=== PATIENT | male | born 1940 | race Caucasian/White ===

== ENCOUNTER 2018-06-29 11:27 | Outpatient (CLI) | payer OTHER, SELFPAY ==
[2018-06-29 11:47] LABS: Absolute Basophil Count 0.03 k/cumm (0.0-0.2); Absolute Eosinophil Count 0.17 k/cumm (0.0-0.7); Absolute Lymphocyte Count 1.49 k/cumm (1.2-3.4); Absolute Monocyte Count 0.45 k/cumm (0.11-0.7); Basophils % 0.8; Eosinophils % 4.3; HCT 35.3 % (40.0-50.0); Lymphocytes % 37.8; Mean Corpuscular Hemoglobin 29.8 pg (27.0-33.0); Mean Corpuscular Volume 87.6 fL (80-95); Mean Platelet Volume 8.4 fL (8.0-11.0); Monocytes % 11.4; Neutrophils % 45.7; Platelet Count 132 x1000/uL (130-400); RBC 4.03 m/cumm (4.50-6.00); White Blood Cell Count 3.94 k/cumm (4.4-10.8)
[2018-06-29 12:14] LABS: ALT 25 U/L (12-78); AST 23 U/L (15-37); Albumin 3.9 g/dL (3.4-5.0); Alkaline Phosphatase 105 U/L (46-116); Anion Gap 7.4 mmol/L (3-11); BUN 15 mg/dL (7-18); Bilirubin, Total 0.4 mg/dL (0.2-1.0); CO2 28.6 mmol/L (21.0-32.0); CREATININE 1.04 mg/dL (0.70-1.30); Calcium 8.8 mg/dL (8.5-10.1); Chloride 104 mmol/L (98-107); Glucose 84 mg/dL (70-100); LDH 212 U/L (85-227); Sodium 140 mmol/L (136-145); Total Protein 6.4 g/dL (6.4-8.2)
== END 2018-06-29 11:28 ==
PROVIDERS: PCP Internal Medicine; Visit Provider Nurse Practitioner Family
DX: C91.90 Lymphoid leukemia, unspecified not having achieved remission (principal)
CPT/HCPCS: 36415; 80053; 83615; 85025

== ENCOUNTER 2018-07-13 07:17 | Outpatient (CLI) | payer OTHER, SELFPAY ==
[2018-07-13 07:35] LABS: Abs Immature Grans 0.01 k/cumm (0.0-0.09); Absolute Basophil Count 0.02 k/cumm (0.0-0.2); Absolute Eosinophil Count 0.23 k/cumm (0.0-0.7); Absolute Lymphocyte Count 1.25 k/cumm (1.2-3.4); Absolute Neutrophil Count 2.17 k/cumm (1.2-6.7); Basophils % 0.5; Eosinophils % 5.6; HCT 36.8 % (40.0-50.0); HGB 12.8 g/dL (13.5-17.5); Immature Grans % 0.2; Lymphocytes % 30.6; Mean Corp. HGB Concentration 34.8 g/dL (32.0-36.0); Mean Corpuscular Hemoglobin 29.8 pg (27.0-33.0); Mean Corpuscular Volume 85.6 fL (80-95); Mean Platelet Volume 9.3 fL (8.0-11.0); Monocytes % 9.8; Neutrophils % 53.3; Platelet Count 110 x1000/uL (130-400); RBC Distribution Width 14.7 % (11.8-14.1); White Blood Cell Count 4.08 k/cumm (4.4-10.8)
[2018-07-13 07:55] LABS: ALT 22 U/L (12-78); AST 19 U/L (15-37); Albumin 3.9 g/dL (3.4-5.0); Alkaline Phosphatase 92 U/L (46-116); Anion Gap 11.4 mmol/L (3-11); BUN 15 mg/dL (7-18); Bilirubin, Total 0.6 mg/dL (0.2-1.0); CO2 26.6 mmol/L (21.0-32.0); CREATININE 1.07 mg/dL (0.70-1.30); Calcium 8.8 mg/dL (8.5-10.1); Chloride 104 mmol/L (98-107); Glucose 145 mg/dL (70-100); LDH 196 U/L (85-227); Potassium 3.7 mmol/L (3.5-5.1); Sodium 142 mmol/L (136-145); Total Protein 6.4 g/dL (6.4-8.2)
== END 2018-07-13 07:18 ==
PROVIDERS: PCP Internal Medicine; Visit Provider Nurse Practitioner Family
DX: C91.90 Lymphoid leukemia, unspecified not having achieved remission (principal)
CPT/HCPCS: 36415; 80053; 83615; 85025

== ENCOUNTER 2018-08-10 01:48 | Outpatient (CLI) | payer OTHER, SELFPAY ==
[2018-08-10 07:46] LABS: HCT 36.2 % (40.0-50.0); Mean Corp. HGB Concentration 35.9 g/dL (32.0-36.0); Mean Corpuscular Hemoglobin 29.8 pg (27.0-33.0); Mean Platelet Volume 9.1 fL (8.0-11.0); Platelet Count 128 x1000/uL (130-400); RBC 4.36 m/cumm (4.50-6.00); RBC Distribution Width 14.9 % (11.8-14.1)
[2018-08-10 07:59] LABS: ALT 30 U/L (12-78); AST 26 U/L (15-37); Alkaline Phosphatase 85 U/L (46-116); Anion Gap 7.1 mmol/L (3-11); BUN 18 mg/dL (7-18); Bilirubin, Total 0.7 mg/dL (0.2-1.0); CO2 28.9 mmol/L (21.0-32.0); CREATININE 0.99 mg/dL (0.70-1.30); Calcium 8.9 mg/dL (8.5-10.1); Chloride 104 mmol/L (98-107); Glucose 111 mg/dL (70-100); LDH 247 U/L (85-227); Potassium 4.2 mmol/L (3.5-5.1); Sodium 140 mmol/L (136-145); Total Protein 6.5 g/dL (6.4-8.2)
[2018-08-10 08:36] LABS: Absolute Lymphocyte Count 0.59 k/cumm (1.2-3.4); Absolute Monocyte Count 0.37 k/cumm (0.11-0.7)
[2018-08-10 08:37] LABS: Absolute Basophil Count 0.02 k/cumm (0.0-0.2); Absolute Eosinophil Count 0.07 k/cumm (0.0-0.7); White Blood Cell Count 1.85 k/cumm (4.4-10.8)
== END 2018-08-10 02:08 ==
PROVIDERS: PCP Internal Medicine; Visit Provider Nurse Practitioner Family
DX: C91.90 Lymphoid leukemia, unspecified not having achieved remission (principal)
CPT/HCPCS: 36415; 80053; 83615; 85025

== ENCOUNTER 2018-08-17 02:28 | Outpatient (CLI) | payer OTHER, SELFPAY ==
[2018-08-17 07:18] LABS: Abs Immature Grans 0.01 k/cumm (0.0-0.09); Absolute Basophil Count 0.04 k/cumm (0.0-0.2); Absolute Eosinophil Count 0.14 k/cumm (0.0-0.7); Absolute Lymphocyte Count 0.65 k/cumm (1.2-3.4); Absolute Monocyte Count 0.42 k/cumm (0.11-0.7); Basophils % 2.3; Eosinophils % 8.1; HCT 35.8 % (40.0-50.0); Immature Grans % 0.6; Lymphocytes % 37.6; Mean Corp. HGB Concentration 36.3 g/dL (32.0-36.0); Mean Corpuscular Hemoglobin 30.1 pg (27.0-33.0); Mean Corpuscular Volume 82.9 fL (80-95); Mean Platelet Volume 8.8 fL (8.0-11.0); Monocytes % 24.3; Neutrophils % 27.1; Platelet Count 121 x1000/uL (130-400); RBC 4.32 m/cumm (4.50-6.00); RBC Distribution Width 14.4 % (11.8-14.1)
[2018-08-17 08:05] LABS: Absolute Neutrophil Count 0.47 k/cumm (1.2-6.7); White Blood Cell Count 1.73 k/cumm (4.4-10.8)
[2018-08-17 08:06] LABS: RBC Morphology Normal
== END 2018-08-17 02:48 ==
PROVIDERS: PCP Internal Medicine; Visit Provider Internal Medicine Hematology & Oncology
DX: C91.90 Lymphoid leukemia, unspecified not having achieved remission (principal)
CPT/HCPCS: 36415; 80053; 85025

== ENCOUNTER 2018-08-24 02:37 | Outpatient (CLI) | payer OTHER, SELFPAY ==
[2018-08-24 08:45] LABS: Abs Immature Grans 0.02 k/cumm (0.0-0.09); Absolute Basophil Count 0.03 k/cumm (0.0-0.2); Absolute Eosinophil Count 0.12 k/cumm (0.0-0.7); Absolute Lymphocyte Count 0.62 k/cumm (1.2-3.4); Absolute Monocyte Count 0.37 k/cumm (0.11-0.7); Absolute Neutrophil Count 0.76 k/cumm (1.2-6.7); Basophils % 1.6; Eosinophils % 6.3; HCT 36.1 % (40.0-50.0); HGB 12.9 g/dL (13.5-17.5); Lymphocytes % 32.3; Mean Corp. HGB Concentration 35.7 g/dL (32.0-36.0); Mean Corpuscular Hemoglobin 29.9 pg (27.0-33.0); Mean Corpuscular Volume 83.8 fL (80-95); Mean Platelet Volume 9.1 fL (8.0-11.0); Monocytes % 19.3; Neutrophils % 39.5; Platelet Count 133 x1000/uL (130-400); RBC 4.31 m/cumm (4.50-6.00); RBC Distribution Width 14.4 % (11.8-14.1)
[2018-08-24 09:05] LABS: White Blood Cell Count 1.92 k/cumm (4.4-10.8)
[2018-08-24 09:06] LABS: Diff Comment Diff Reviewed; RBC Morphology Normal
== END 2018-08-24 02:57 ==
PROVIDERS: PCP Internal Medicine; Visit Provider Nurse Practitioner Family
DX: C91.90 Lymphoid leukemia, unspecified not having achieved remission (principal)
CPT/HCPCS: 36415; 85025

== ENCOUNTER 2018-09-07 01:25 | Outpatient (CLI) | payer OTHER, SELFPAY ==
[2018-09-07 08:46] LABS: Absolute Basophil Count 0.02 k/cumm (0.0-0.2); Absolute Eosinophil Count 0.21 k/cumm (0.0-0.7); Absolute Lymphocyte Count 0.97 k/cumm (1.2-3.4); Absolute Monocyte Count 0.52 k/cumm (0.11-0.7); Absolute Neutrophil Count 1.59 k/cumm (1.2-6.7); Basophils % 0.6; Eosinophils % 6.3; HCT 38.4 % (40.0-50.0); HGB 13.9 g/dL (13.5-17.5); Lymphocytes % 29.3; Mean Corp. HGB Concentration 36.2 g/dL (32.0-36.0); Mean Corpuscular Hemoglobin 29.8 pg (27.0-33.0); Mean Corpuscular Volume 82.4 fL (80-95); Mean Platelet Volume 9.3 fL (8.0-11.0); Monocytes % 15.7; Neutrophils % 48.1; Platelet Count 132 x1000/uL (130-400); RBC 4.66 m/cumm (4.50-6.00); RBC Distribution Width 13.9 % (11.8-14.1); White Blood Cell Count 3.31 k/cumm (4.4-10.8)
[2018-09-07 09:01] LABS: ALT 34 U/L (12-78); AST 25 U/L (15-37); Alkaline Phosphatase 85 U/L (46-116); Anion Gap 6.8 mmol/L (3-11); BUN 18 mg/dL (7-18); Bilirubin, Total 0.8 mg/dL (0.2-1.0); CO2 30.2 mmol/L (21.0-32.0); CREATININE 0.99 mg/dL (0.70-1.30); Calcium 9.1 mg/dL (8.5-10.1); Chloride 104 mmol/L (98-107); Glucose 106 mg/dL (70-100); LDH 224 U/L (85-227); Potassium 4.3 mmol/L (3.5-5.1); Sodium 141 mmol/L (136-145); Total Protein 6.5 g/dL (6.4-8.2)
== END 2018-09-07 01:45 ==
PROVIDERS: PCP Internal Medicine; Visit Provider Nurse Practitioner Family
DX: C91.90 Lymphoid leukemia, unspecified not having achieved remission (principal)
CPT/HCPCS: 36415; 80053; 83615; 85025

== ENCOUNTER 2018-10-05 01:52 | Outpatient (CLI) | payer OTHER, SELFPAY ==
[2018-10-05 08:19] LABS: Abs Immature Grans 0.01 k/cumm (0.0-0.09); Absolute Basophil Count 0.02 k/cumm (0.0-0.2); Absolute Eosinophil Count 0.15 k/cumm (0.0-0.7); Absolute Lymphocyte Count 0.63 k/cumm (1.2-3.4); Absolute Neutrophil Count 2.24 k/cumm (1.2-6.7); Basophils % 0.6; Eosinophils % 4.5; HCT 37.3 % (40.0-50.0); HGB 13.5 g/dL (13.5-17.5); Immature Grans % 0.3; Lymphocytes % 18.8; Mean Corp. HGB Concentration 36.2 g/dL (32.0-36.0); Mean Corpuscular Hemoglobin 30.1 pg (27.0-33.0); Mean Corpuscular Volume 83.3 fL (80-95); Mean Platelet Volume 8.9 fL (8.0-11.0); Neutrophils % 66.8; Platelet Count 107 x1000/uL (130-400); RBC 4.48 m/cumm (4.50-6.00); RBC Distribution Width 14.3 % (11.8-14.1); White Blood Cell Count 3.35 k/cumm (4.4-10.8)
[2018-10-05 08:30] LABS: ALT 34 U/L (12-78); AST 24 U/L (15-37); Albumin 3.9 g/dL (3.4-5.0); Alkaline Phosphatase 88 U/L (46-116); Anion Gap 11.4 mmol/L (3-11); BUN 15 mg/dL (7-18); Bilirubin, Total 0.7 mg/dL (0.2-1.0); CO2 26.6 mmol/L (21.0-32.0); CREATININE 1.03 mg/dL (0.70-1.30); Calcium 9.2 mg/dL (8.5-10.1); Chloride 103 mmol/L (98-107); Glucose 153 mg/dL (70-100); LDH 225 U/L (85-227); Sodium 141 mmol/L (136-145); Total Protein 6.3 g/dL (6.4-8.2)
== END 2018-10-05 02:12 ==
PROVIDERS: PCP Internal Medicine; Visit Provider Nurse Practitioner Family
DX: C91.90 Lymphoid leukemia, unspecified not having achieved remission (principal)
CPT/HCPCS: 36415; 80053; 83615; 85025

== ENCOUNTER 2019-02-06 01:02 | Outpatient (CLI) | payer OTHER, SELFPAY ==
[2019-02-06 13:05] LABS: Abs Immature Grans 0.01 k/cumm (0.0-0.09); Absolute Basophil Count 0.02 k/cumm (0.0-0.2); Absolute Eosinophil Count 0.17 k/cumm (0.0-0.7); Absolute Lymphocyte Count 0.88 k/cumm (1.2-3.4); Absolute Monocyte Count 0.41 k/cumm (0.11-0.7); Absolute Neutrophil Count 2.07 k/cumm (1.2-6.7); Basophils % 0.6; Eosinophils % 4.8; HGB 14.3 g/dL (13.5-17.5); Immature Grans % 0.3; Lymphocytes % 24.7; Mean Corp. HGB Concentration 36.7 g/dL (32.0-36.0); Mean Corpuscular Hemoglobin 30.1 pg (27.0-33.0); Mean Corpuscular Volume 82.1 fL (80-95); Mean Platelet Volume 9.6 fL (8.0-11.0); Monocytes % 11.5; Neutrophils % 58.1; Platelet Count 120 x1000/uL (130-400); RBC 4.75 m/cumm (4.50-6.00); RBC Distribution Width 13.3 % (11.8-14.1); White Blood Cell Count 3.56 k/cumm (4.4-10.8)
--- NOTE | 2019-02-06 13:33 | DI.CT_ITS ---
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 There are no priors for comparison. There is mild atherosclerosis of the thoracic aorta but no aneurysmal dilatation is seen. Heart size is within normal limits. No significant pericardial effusion is present. Coronary artery calcifications are identified. No significant thoracic adenopathy is appreciated. No pleural effusion or pneumothorax is identified. There is a 0.4 cm., non calcified subpleural pulmonary nodule in the medial aspect of the right lower lobe. No suspicious non calcified pulmonary nodules are identified. There are linear infiltrates seen in the lung bases. This may represent atelectasis or scarring. No focal consolidating infiltrates are seen. The tracheobronchial tree is unremarkable. There is diffuse decreased attenuation of the visualized portion of the liver suspicious for hepatic steatosis. There is a 2.8 cm. simple cyst in the upper pole of the right kidney. There are non obstructing stones seen in the left kidney, the largest is seen in the mid pole and measures 0.7cm. There is a small hiatal hernia present. There are degenerative changes seen in the spine. No aggressive osseous lesions are identified. IMPRESSION: 1. No evidence of thoracic adenopathy. 2. Small 4 mm. nodule in the right lower lobe. No evidence of thoracic metastatic disease. 3. Incidental findings consistent with hepatic steatosis. Right renal cyst. Left nephrolithiasis.
[2019-02-06 13:34] LABS: ALT 46 U/L (12-78); AST 31 U/L (15-37); Albumin 4.1 g/dL (3.4-5.0); Alkaline Phosphatase 98 U/L (46-116); BUN 21 mg/dL (7-18); Bilirubin, Total 0.5 mg/dL (0.2-1.0); CREATININE 1.23 mg/dL (0.70-1.30); Calcium 8.8 mg/dL (8.5-10.1); Chloride 101 mmol/L (98-107); Estimated GFR 57.21 (mL/min/1.73m2); Glucose 134 mg/dL (70-100); LDH 240 U/L (85-227); Potassium 3.3 mmol/L (3.5-5.1); Sodium 141 mmol/L (136-145); Total Protein 6.6 g/dL (6.4-8.2)
[2019-02-06] MEDS: Omnipaque 350 MG/ML 100 ML BTL IV (14:39)
== END 2019-02-06 01:22 ==
PROVIDERS: PCP Internal Medicine; Visit Provider Internal Medicine Hematology & Oncology
DX: C91.90 Lymphoid leukemia, unspecified not having achieved remission (principal); R91.1 Solitary pulmonary nodule; K76.0 Fatty (change of) liver, not elsewhere classified; N20.0 Calculus of kidney; N28.1 Cyst of kidney, acquired; K44.9 Diaphragmatic hernia without obstruction or gangrene
CPT/HCPCS: 36415; 80053; 71260; 83615; 85025; J3490

== ENCOUNTER 2019-06-14 01:43 | Outpatient (CLI) | payer OTHER, SELFPAY ==
[2019-06-14 08:43] LABS: Abs Immature Grans 0.01 k/cumm (0.0-0.09); Absolute Basophil Count 0.02 k/cumm (0.0-0.2); Absolute Eosinophil Count 0.21 k/cumm (0.0-0.7); Absolute Lymphocyte Count 1.01 k/cumm (1.2-3.4); Absolute Monocyte Count 0.46 k/cumm (0.11-0.7); Absolute Neutrophil Count 2.93 k/cumm (1.2-6.7); Basophils % 0.4; Eosinophils % 4.5; HCT 40.8 % (40.0-50.0); HGB 15.1 g/dL (13.5-17.5); Immature Grans % 0.2; Lymphocytes % 21.8; Mean Corpuscular Hemoglobin 30.6 pg (27.0-33.0); Mean Corpuscular Volume 82.6 fL (80-95); Mean Platelet Volume 9.3 fL (8.0-11.0); Monocytes % 9.9; Neutrophils % 63.2; Platelet Count 131 x1000/uL (130-400); RBC 4.94 m/cumm (4.50-6.00); White Blood Cell Count 4.64 k/cumm (4.4-10.8)
[2019-06-14 08:57] LABS: ALT 61 U/L (12-78); AST 26 U/L (15-37); Albumin 4.4 g/dL (3.4-5.0); Alkaline Phosphatase 101 U/L (46-116); Anion Gap 9.2 mmol/L (3-11); BUN 20 mg/dL (7-18); CO2 28.8 mmol/L (21.0-32.0); CREATININE 1.09 mg/dL (0.70-1.30); Calcium 9.3 mg/dL (8.5-10.1); Chloride 102 mmol/L (98-107); Glucose 113 mg/dL (70-100); LDH 185 U/L (85-227); Potassium 3.7 mmol/L (3.5-5.1); Sodium 140 mmol/L (136-145); Total Protein 6.8 g/dL (6.4-8.2)
[2019-06-14 09:22] LABS: Hemoglobin A1C 5.3 % (4.5-6.2)
[2019-06-14 09:46] LABS: TSH 0.36 uIU/mL (0.358-3.74); Uric Acid 9.2 mg/dL (3.5-7.2)
[2019-06-14 09:57] LABS: Calculated LDL 103 mg/dL; Cholesterol 159 mg/dL (50-200); HDL Cholesterol 31 mg/dL (40-60); Triglyceride 126 mg/dL (30-150)
== END 2019-06-14 02:03 ==
PROVIDERS: PCP Internal Medicine; Referring Provider Internal Medicine; Visit Provider Internal Medicine Hematology & Oncology
DX: C91.90 Lymphoid leukemia, unspecified not having achieved remission (principal); R73.9 Hyperglycemia, unspecified; E79.0 Hyperuricemia without signs of inflammatory arthritis and tophaceous disease; E03.9 Hypothyroidism, unspecified; E78.5 Hyperlipidemia, unspecified
CPT/HCPCS: 36415; 80053; 80061; 83721; 83036; 83615; 84443; 84550; 85025

== ENCOUNTER 2019-11-01 02:14 | Outpatient (CLI) | payer OTHER, SELFPAY ==
[2019-11-01 07:51] LABS: Abs Immature Grans 0.01 k/cumm (0.0-0.09); Absolute Basophil Count 0.01 k/cumm (0.0-0.2); Absolute Eosinophil Count 0.26 k/cumm (0.0-0.7); Absolute Lymphocyte Count 0.94 k/cumm (1.2-3.4); Absolute Monocyte Count 0.42 k/cumm (0.11-0.7); Absolute Neutrophil Count 2.78 k/cumm (1.2-6.7); Basophils % 0.2; Eosinophils % 5.9; HCT 40.2 % (40.0-50.0); HGB 14.6 g/dL (13.5-17.5); Immature Grans % 0.2; Lymphocytes % 21.3; Mean Corp. HGB Concentration 36.3 g/dL (32.0-36.0); Mean Corpuscular Hemoglobin 30.6 pg (27.0-33.0); Mean Corpuscular Volume 84.3 fL (80-95); Mean Platelet Volume 9.9 fL (8.0-11.0); Monocytes % 9.5; Neutrophils % 62.9; Platelet Count 119 x1000/uL (130-400); RBC 4.77 m/cumm (4.50-6.00); White Blood Cell Count 4.42 k/cumm (4.4-10.8)
[2019-11-01 07:58] LABS: ALT 72 U/L (16-63); AST 32 U/L (15-37); Albumin 4.1 g/dL (3.4-5.0); Alkaline Phosphatase 84 U/L (46-116); Anion Gap 10.1 mmol/L (3-11); BUN 17 mg/dL (7-18); Bilirubin, Total 0.6 mg/dL (0.2-1.0); CO2 25.9 mmol/L (21.0-32.0); CREATININE 1.07 mg/dL (0.70-1.30); Calcium 8.8 mg/dL (8.5-10.1); Chloride 106 mmol/L (98-107); Glucose 163 mg/dL (74-106); LDH 179 U/L (85-227); Potassium 3.6 mmol/L (3.5-5.1); Sodium 142 mmol/L (136-145); Total Protein 6.4 g/dL (6.4-8.2)
== END 2019-11-01 02:34 ==
PROVIDERS: PCP Internal Medicine; Visit Provider Internal Medicine Hematology & Oncology
DX: C91.90 Lymphoid leukemia, unspecified not having achieved remission (principal)
CPT/HCPCS: 36415; 80053; 83615; 85025

== ENCOUNTER 2020-06-06 01:30 | Outpatient (CLI) | payer OTHER, SELFPAY ==
[2020-06-06 07:42] LABS: Abs Immature Grans 0.01 k/cumm (0.0-0.09); Absolute Basophil Count 0.03 k/cumm (0.0-0.2); Absolute Eosinophil Count 0.24 k/cumm (0.0-0.7); Absolute Lymphocyte Count 1.51 k/cumm (1.2-3.4); Absolute Monocyte Count 0.51 k/cumm (0.11-0.7); Absolute Neutrophil Count 3.12 k/cumm (1.2-6.7); Basophils % 0.6; Eosinophils % 4.4; HGB 15.2 g/dL (13.5-17.5); Immature Grans % 0.2 %; Lymphocytes % 27.9; Mean Corp. HGB Concentration 36.2 g/dL (32.0-36.0); Mean Corpuscular Hemoglobin 30.2 pg (27.0-33.0); Mean Corpuscular Volume 83.5 fL (80-95); Monocytes % 9.4; Neutrophils % 57.5; Platelet Count 132 x1000/uL (130-400); RBC 5.03 m/cumm (4.50-6.00); RBC Distribution Width 13.1 % (11.8-14.1); White Blood Cell Count 5.42 k/cumm (4.4-10.8)
[2020-06-06 07:58] LABS: ALT 60 U/L (16-63); AST 32 U/L (15-37); Albumin 4.4 g/dL (3.4-5.0); Alkaline Phosphatase 79 U/L (46-116); Anion Gap 8.3 mmol/L (3-11); BUN 21 mg/dL (7-18); CO2 27.7 mmol/L (21.0-32.0); CREATININE 1.17 mg/dL (0.70-1.30); Calcium 9.1 mg/dL (8.5-10.1); Chloride 104 mmol/L (98-107); Glucose 120 mg/dL (74-106); LDH 173 U/L (85-227); Potassium 4.4 mmol/L (3.5-5.1); Sodium 140 mmol/L (136-145); Total Protein 6.6 g/dL (6.4-8.2)
[2020-06-06 08:01] LABS: Hemoglobin A1C 5.2 % (3.8-5.6)
[2020-06-06 08:24] LABS: TSH 0.27 uIU/mL (0.36-3.74); Uric Acid 8.8 mg/dL (3.5-7.2)
== END 2020-06-06 01:50 ==
PROVIDERS: PCP Internal Medicine; Visit Provider Internal Medicine Hematology & Oncology
DX: C91.90 Lymphoid leukemia, unspecified not having achieved remission (principal); R73.9 Hyperglycemia, unspecified; E79.0 Hyperuricemia without signs of inflammatory arthritis and tophaceous disease; E03.9 Hypothyroidism, unspecified
CPT/HCPCS: 36415; 80053; 83036; 83615; 84443; 84550; 85025

== ENCOUNTER 2020-08-21 02:33 | Outpatient (CLI) | payer OTHER, SELFPAY ==
[2020-08-21 11:35] LABS: TSH 1.29 uIU/mL (0.36-3.74)
[2020-08-22 11:50] LABS: Hepatitis C Ab w Rflx HCV PCR Negative (Negative)
== END 2020-08-21 02:53 ==
PROVIDERS: PCP Internal Medicine; Visit Provider Internal Medicine
DX: E03.9 Hypothyroidism, unspecified (principal); Z11.59 Encounter for screening for other viral diseases
CPT/HCPCS: 36415; 86803; 84443

== ENCOUNTER 2021-01-15 03:01 | Outpatient (CLI) | payer MEDICARE, SELFPAY ==
[2021-01-15 09:57] LABS: Abs Immature Grans 0.02 10^3/uL (0.0-0.06); Absolute Basophil Count 0.06 10^3/uL (0.0-0.2); Absolute Eosinophil Count 0.27 10^3/uL (0.0-0.7); Absolute Lymphocyte Count 1.76 10^3/uL (1.2-3.4); Absolute Monocyte Count 0.61 10^3/uL (0.1-0.8); Absolute Neutrophil Count 3.55 10^3/uL (1.2-6.7); Eosinophils % 4.3; HGB 15.4 g/dL (13.5-17.5); Immature Grans % 0.3; Lymphocytes % 28.1; MCH 30.5 pg (27.0-33.0); MCHC 35.8 % (32.0-36.0); MCV 85.1 fL (80-95); MPV 9.7 fL (8.0-11.0); Monocytes % 9.7; Neutrophils % 56.6; Nucleated RBC 0 %; Platelet Count 141 10^3/uL (130-400); RBC 5.05 10^6/uL (4.36-5.78); RDW 12.9 % (11.8-14.1); RDW-SD 39.2 fL; WBC 6.27 10^3/uL (4.4-10.8)
[2021-01-15 10:07] LABS: ALT 73 U/L (16-63); AST 38 U/L (15-37); Albumin 4.3 g/dL (3.4-5.0); Alkaline Phosphatase 81 U/L (46-116); Anion Gap 11.2 mmol/L (3-11); BUN 24 mg/dL (7-18); Bilirubin, Total 0.9 mg/dL (0.2-1.0); CO2 25.8 mmol/L (21.0-32.0); CREATININE 1.3 mg/dL (0.70-1.30); Chloride 102 mmol/L (98-107); Estimated GFR 53.39 (mL/min/1.73m2); Glucose 88 mg/dL (74-106); LDH 201 U/L (85-227); Potassium 3.6 mmol/L (3.5-5.1); Sodium 139 mmol/L (136-145)
== END 2021-01-15 03:02 | disposition home or self-care (01) ==
LOC: LBO 03:02
PROVIDERS: Internal Medicine Hematology & Oncology; PCP Internal Medicine; Visit Provider Internal Medicine Hematology & Oncology
DX: C91.10 Chronic lymphocytic leukemia of B-cell type not having achieved remission (principal)
CPT/HCPCS: 36415; 80053; 83615; 85025

== ENCOUNTER 2021-06-28 13:17 | Emergency (ER) | payer MEDICARE, SELFPAY ==
--- NOTE | 2021-06-28 13:20 | ED.GENADUL_ITS ---
Discharge Plan Disposition Patient Disposition: HOME Condition: Stable Discharge Details Clinical Impression: Acute ischemic optic neuropathy Primary Care Provider: Nel Saravia ED Provider: Crista Pratt Home Meds and New Rx's Prescriptions: Continued pediatric multivitamin 1 EACH tablet,chewable 1 ea PO RF: 0 triamcinolone acetonide 15 GM cream 15 gm Topical RF: 0 levothyroxine 150 MCG tablet 150 mcg PO DAILY RF: 0 green tea leaf extract 250 MG capsule 250 mg PO RF: 0 hydrochlorothiazide 25 MG tablet 25 mg PO RF: 0 vitamin B complex 1 EACH capsule 1 ea PO RF: 0 magnesium oxide 250 MG tablet 250 mg PO RF: 0 omega-3 fatty acids-fish oil [Fish Oil] 1 EACH capsule 1 ea PO RF: 0 [id number]-herbal cmplx#[id number] [Vitamin D3 Complete] 1 EACH tablet 1 ea PO RF: 0 polyethylene glycol 3350 [Miralax] 17 GM powder in packet 255 gm PO for colonoscopy Qty: 1 RF: 0 bisacodyl [Dulcolax (bisacodyl)] 5 MG tablet,delayed release (DR/EC) 5 mg PO ONCE Qty: 4 RF: 0 Changed aspirin [Aspirin Low Dose] 81 MG tablet,delayed release (DR/EC) 325 mg PO DAILY Qty: 0 RF: 0 Discharge Instructions Additional Instructions: As was recommended by Dr. Herrera please increase your aspirin to full dose daily. Plan is for you to follow-up with him on Wednesday. If you develop headache, increased symptoms, fever, weakness, sensory changes or other new/worsening symptom please seek care urgently once again. Please call Dr. Davis's office on Wednesday to ensure time for your appointment on Wednesday. Referrals: [facility] [place] [Outside] Discharge Data Discharge Date/Time-TO BE ENTERED AT DEPARTURE: 06/28/21 15:11 Medical Decision Making Contacted by Dr. Herrera prior to the patient's arrival. He is concern for an ischemic optic neuropathy. Recommended screening for gentle arteritis with an ESR and CRP. If this is elevated, he recommended 1 g of methylprednisolone. If this is negative, recommended increasing the patient's aspirin. We will touch base with him with results. Patient is a pleasant 80-year-old male presenting today with chief complaint of decreased visual field on the right side. He reports that this has been present since Wednesday. Patient was mowing the lawn when he states that he began noticing a diminishing visual field. Described this in all easley currently. Denies any eye pain. Left eye had cataract but is otherwise unchanged. He denies any headache, focal deficits, sensory changes. Patient states that he is otherwise been feeling quite well. He does report that he had difficulty with vision in the right eye at baseline secondary to cataract. Has been being f ollowed by Dr. Davis and has been planned to have cataract surgery. Prior to arrival, the patient had his pupil dilated on the right side and full exam by Dr. Davis. Day feel that this is consistent with ischemic neuropathy, please see note above. On exam, patient does have very diminished vision in the right side. And visual field inspection, patient is able to see my hand but is not able to comment from the fingers are being held up, he describes it more as shape. He has full external ocular movements. His right pupil is very dilated. Neurologic exam is otherwise intact. No cranial nerve deficit, moving all of his extremities well with no weakness or sensation deficits. Labs reviewed. No leukocytosis. Stable H&H. ESR and CRP are both within normal limits. CMP largely unremarkable. ALT is slightly elevated at 72, this appears to be baseline for the patient. I did speak again with Dr. Herrera. We reviewed the results. He advised placing the patient on a full 325 mg aspirin daily and advised that he will see the patient in the office on Wednesday. I spoke again with the patient we discussed these recommendations. She is in agreement with this plan with no further questions. He will follow through with Dr. Nunez's recommendations and will see them again on Wednesday. Return precautions were discussed. All questions and concerns were addressed in agreement with plan. HPI General Mode of arrival: ambulatory . Date/Time Provider Initiated Documentation: 06/28/21 13:17 . Limitations to Documentation: no limitations . Information obtained by: patient, family (), RN/MD (contacted by Dr. Herrera prior to arrival) and RN notes reviewed . History of Present Illness 80 year old M presents to the emergency department with the chief complaint of right eye visual deficit, described as moderate (progressively worsening since Wednesday), with intensity rated at 1 (patient denies any pain associated with this). and is localized to the eyes. Patient reports no radiation. Patient started experiencing this day(s) (5) and it has been constant. No relieving factors improve symptom(s), No exacerbating factors reported . Patient notes no other symptoms.. Patient did receive the following treatments prior to arrival, none Related Data Home Medications Medication Instructions Recorded Confirmed bisacodyl [Dulcolax (bisacodyl)] 5 mg PO ONCE #4 tab 06/23/16 06/28/21 green tea leaf extract 250 mg PO NS 06/23/16 hydrochlorothiazide 25 mg PO NS 06/23/16 levothyroxine 150 mcg PO DAILY tab-cap NS 06/23/16 06/28/21 magnesium oxide 250 mg PO NS 06/23/16 [id number]-xini-FA-herbal cmplx#[id number] 1 ea PO NS 06/23/16 [Vitamin D3 Complete] omega-3 fatty acids-fish oil [Fish 1 ea PO NS 06/23/16 Oil] pediatric multivitamin 1 ea PO tab.chew NS 06/23/16 polyethylene glycol 3350 [Miralax] 255 gm PO for colonoscopy #1 gm 06/23/16 06/28/21 triamcinolone acetonide 15 gm TOPICAL script NS 06/23/16 vitamin B complex 1 ea PO NS 06/23/16 aspirin [Aspirin Low Dose] 325 mg PO DAILY #0 tab-cap NS 06/28/21 06/28/21 Previous Rx's Medication Instructions Recorded aspirin [Aspirin Low Dose] 325 mg PO DAILY #0 tab-cap NS 06/28/21 Allergies Allergy/AdvReac Type Severity Reaction Status Date / Time No Known Allergies Allergy Unverified 06/28/21 13:27 Review of Systems Constitutional Constitutional: Reports as per HPI, Denies chills, Denies fatigue, Denies fever(s) and Denies headache(s) Eyes Eyes: Reports as per HPI ENT Ears, Nose, Mouth, and Throat: Denies headache(s) Cardiovascular Cardiovascular: Reports as per HPI, Denies chest pain and Denies lightheadedness Respiratory Respiratory: Denies cough Integumentary/Breasts Skin/Breast: Reports as per HPI, Denies rash, Denies skin pain and Denies skin swelling Neurologic Neurologic: Denies headache(s) and Denies radicular pain Endocrine Endocrine: Denies fatigue [facility] Medical History (Updated 06/28/21 @ 14:37 by SAROJ Christian) Acute lymphoid leukemia, without mention of having achieved remission (03/29/14) Dyslipidemia Eczema Environmental allergies (05/29/15) Fatigue Hyperglycemia (04/28/16) Hyperuricemia (04/28/16) Hypothyroidism (acquired) Lymphadenopathy (10/24/07) Nephrolithiasis Vitamin D deficiency (02/28/12) Surgical History Adenoidectomy Appendectomy Lithotripsy (11/29/91) 1991, 1996, 1998 Open Kidney Stone Removal (11/29/05) Stone Extraction and Stent (11/29/92) Stent subsequently removed Family History (Updated 05/05/16 @ 09:03 by Elda Gomez) Other CAD (coronary artery disease) DM type 2 (diabetes mellitus, type 2) Stroke Thyroid disorder Social History Smoking/Tobacco Use Status: Never Smoking risk assessment performed?: Yes Alcohol Intake: never Drug use: Never Substance use type: does not use Do you feel safe at home: Yes Do you feel safe in your relationship?: Yes Exam Const General: cooperative, healthy appearing, comfortable, no acute distress, well developed and well groomed Nutritional Appearance: average body habitus and well nourished Orientation: alert, awake and oriented x3 HENMT Head: normal to inspection, normocephalic and atraumatic Ears: hearing grossly normal bilaterally and external ears normal General nose exam: external nose normal and nares normal Face and sinus: normal facial exam and face symmetric Mouth: oral mucosae normal, lip normal and moist mucous membranes Eyes Visual Easley: visual easley abnormal by confrontation Alignment and Position: alignment normal Periorbital: periorbital findings normal Eyelids: eyelids normal Conjunctivae: conjunctivae normal Sclera: sclerae normal Pupils: pupils not ERRL (right pupil dialated) EOM: EOM intact bilaterally Resp Effort & Inspection: normal respiratory effort, able to speak in complete sentences and no respiratory distress Auscultation: clear to auscultation bilaterally Cardio Rate: regular rate Rhythm: regular rhythm Heart Sounds: S1 normal and S2 normal Skin General skin exam: no rashes or lesions noted Neuro General: patient alert, patient awake and patient oriented x3 Cranial Nerves: pupils not ERRL (limited secondary to pupil being dialated), EOM intact bilaterally, no nystagmus, facial strength normal, tongue midline, hearing normal, able to rotate head bilaterally and able to elevate shoulders bilaterally Cognition: normal cognition Speech: speech normal Gait: normal gait Motor: muscle tone normal throughout, strength 5/5 throughout, no pronator drift, no movement abnormalities noted and no fasciculations Sensory Exam: no sensory deficits noted Coordination: [id number] test normal and [id number] test normal Psych Appearance: grossly normal and well kempt Mental Status: mental status grossly normal Speech and Movement: speech and movement normal
[2021-06-28 13:22] VITALS: BP 141/70; PULSE 59; RESP 18; TEMP 36.6; O2SAT 98
[2021-06-28 13:42] LABS: Abs Immature Grans 0.03 10^3/uL (0.0-0.06); Absolute Basophil Count 0.04 10^3/uL (0.0-0.2); Absolute Eosinophil Count 0.24 10^3/uL (0.0-0.7); Absolute Lymphocyte Count 1.23 10^3/uL (1.2-3.4); Absolute Monocyte Count 0.46 10^3/uL (0.1-0.8); Absolute Neutrophil Count 3.23 10^3/uL (1.2-6.7); Basophils % 0.8; Eosinophils % 4.6; HCT 43.6 % (40.0-50.0); HGB 15.3 g/dL (13.5-17.5); Immature Grans % 0.6; Lymphocytes % 23.5; MCH 30.3 pg (27.0-33.0); MCHC 35.1 % (32.0-36.0); MCV 86.3 fL (80-95); MPV 9.7 fL (8.0-11.0); Monocytes % 8.8; Neutrophils % 61.7; Nucleated RBC 0 %; Platelet Count 142 10^3/uL (130-400); RBC 5.05 10^6/uL (4.36-5.78); RDW 12.9 % (11.8-14.1); RDW-SD 39.9 fL; WBC 5.23 10^3/uL (4.4-10.8)
[2021-06-28 13:55] LABS: ESR < 1 mm/hr (0-20)
[2021-06-28 14:02] LABS: ALT 72 U/L (16-63); AST 32 U/L (15-37); Albumin 4.5 g/dL (3.4-5.0); Alkaline Phosphatase 85 U/L (46-116); BUN 18 mg/dL (7-18); Bilirubin, Total 0.7 mg/dL (0.2-1.0); C-Reactive Protein 0.11 mg/dL (0.0-0.3); CREATININE 1.1 mg/dL (0.70-1.30); Calcium 9.1 mg/dL (8.5-10.1); Chloride 106 mmol/L (98-107); Glucose 100 mg/dL (74-106); Potassium 4.3 mmol/L (3.5-5.1); Sodium 144 mmol/L (136-145); Total Protein 7.2 g/dL (6.4-8.2)
[2021-06-28 15:04] VITALS: BP 137/64; PULSE 59; RESP 18; TEMP 36.8; O2SAT 98
== END 2021-06-28 15:11 | disposition home or self-care (01) ==
PROVIDERS: Emergency Provider Physician Assistant; PCP Internal Medicine
DX: H47.011 Ischemic optic neuropathy, right eye (principal)
CPT/HCPCS: 36415; 80053; 85652; 99283; 85025; 86140

== ENCOUNTER 2021-07-07 06:05 | Day surgery (SDC) | payer MEDICARE, SELFPAY ==
[2021-07-07 06:24] VITALS: BP 107/73; PULSE 59; RESP 16; TEMP 36.4; O2SAT 98
[2021-07-07] MEDS: Tropicam./Phenyleph. (1/2.5%) 5 ML BTL OS ×2 (06:34→06:39)
--- NOTE | 2021-07-07 06:57 | W.ANESPRE ---
General Info Date of Service Date Performed: 07/07/21 Height: 5 ft 11 in Weight: 88.4 kg Body Mass Index (BMI): 27.1 Surgical Procedure: Operation Date: 07/07/21 07:40 Proposed Procedures Side Surgeon p Cataract Extraction with IOL Implant Left Kraig Olguin MD Meds Allergies and Home Medications Allergies Allergy/AdvReac Type Severity Reaction Status Date / Time No Known Allergies Allergy Unverified 07/07/21 06:21 Home Medication Medication Instructions Recorded Fish Oil 1 ea PO DAILY NS 06/23/16 Vitamin D3 Complete 1 ea PO DAILY NS 06/23/16 bisacodyl [Dulcolax (bisacodyl)] 5 mg PO ONCE #4 tab 06/23/16 green tea leaf extract 250 mg PO DAILY NS 06/23/16 hydrochlorothiazide 25 mg PO DAILY NS 06/23/16 levothyroxine 150 mcg PO DAILY tab-cap NS 06/23/16 magnesium oxide 250 mg PO DAILY NS 06/23/16 polyethylene glycol 3350 [Miralax] 255 gm PO for colonoscopy #1 gm 06/23/16 triamcinolone acetonide 15 gm TOPICAL DAILY script NS 06/23/16 vitamin B complex 1 ea PO DAILY NS 06/23/16 aspirin [Aspirin Low Dose] 325 mg PO DAILY #0 tab-cap NS 06/28/21 Current Visit Medications: Current Medications Generic Name Dose Route Start Last Admin Trade Name Freq PRN Reason Stop Dose Admin Acetaminophen 1,000 mg 07/07/21 06:00 Acetaminophen 500 Mg Tab PO Q4H PRN PRN Miscellaneous Medication 0 ml 07/07/21 06:00 Prednisolone 1%, Moxifloxacin 0.5%, Nepafenac 0.1% 5ml Btl OS DIRECTED ANIVAL Miscellaneous Medication 0 ml 07/07/21 06:00 07/07/21 06:39 Tropicam./Phenyleph. (1/2.5%) 5 Ml Btl OS 1 drp DIRECTED ANIVAL Administration Tetracaine HCl 0 ml 07/07/21 06:00 Tetracaine 0.5% 4 Ml Btl OS DIRECTED ANIVAL PFSH Active Problems Active Problems: Problem Status Onset Code Acute ischemic optic neuropathy H47.019 Medical History Medical History (Updated 07/07/21 @ 06:20 by Kingsley Dias) Acute lymphoid leukemia, without mention of having achieved remission (03/29/14) Dyslipidemia Eczema Environmental allergies (05/29/15) Fatigue Hyperglycemia (04/28/16) Hyperuricemia (04/28/16) Hypothyroidism (acquired) Lymphadenopathy (10/24/07) Nephrolithiasis Vision loss of right eye Vitamin D deficiency (02/28/12) Surgical History Surgical History (Updated 07/07/21 @ 06:21 by Kingsley Dias) Adenoidectomy Patient denies having this surgery. Appendectomy Lithotripsy (11/29/91) 1991, 1996, 1998 Open Kidney Stone Removal (11/29/05) Stone Extraction and Stent (11/29/92) Stent subsequently removed Tobacco Smoking/Tobacco Use Status: Never Alcohol Alcohol Intake: never Substance Use Substance use: Never Substance use type: does not use Vital Signs and Lab Results Vital Signs Most Recent Vital Signs in EMR: Most Recent Vital Signs Temp Pulse Resp BP Pulse Ox 36.4 C L 59 L 16 107/73 98 07/07/21 06:24 07/07/21 06:24 07/07/21 06:24 07/07/21 06:24 07/07/21 06:24 Lab Results Blood Type / Crossmatch: No Data to Display Complete Blood Count: White Blood Count 5.23 10^3/uL (4.4-10.8) 06/28/21 13:30 06/28/21 Red Blood Count 5.05 10^6/uL (4.36-5.78) 06/28/21 13:30 06/28/21 Hemoglobin 15.3 g/dL (13.5-17.5) 06/28/21 13:30 06/28/21 Hematocrit 43.6 % (40.0-50.0) 06/28/21 13:30 06/28/21 Platelet Count 142 10^3/uL (130-400) 06/28/21 13:30 06/28/21 Complete Metabolic Panel: Sodium Level 144 mmol/L (136-145) 06/28/21 13:30 06/28/21 Potassium Level 4.3 mmol/L (3.5-5.1) 06/28/21 13:30 06/28/21 Chloride Level 106 mmol/L (98-107) 06/28/21 13:30 06/28/21 Carbon Dioxide Level 29.0 mmol/L (21.0-32.0) 06/28/21 13:30 06/28/21 Blood Urea Nitrogen 18 mg/dL (7-18) 06/28/21 13:06/28/21 Creatinine 1.1 mg/dL (0.70-1.30) 06/28/21 13:30 06/28/21 Estimated GFR/1.73 m2 >= 60.00 (mL/min/1.73m2) 06/28/21 13:06/28/21 Calcium Level 9.1 mg/dL (8.5-10.1) 06/28/21 13:06/28/21 Albumin 4.5 g/dL (3.4-5.0) 06/28/21 13:06/28/21 Glucose Level 100 mg/dL (74-106) 06/28/21 13:30 06/28/21 C-Reactive Protein 0.11 mg/dL (0.0-0.3) 06/28/21 13:30 06/28/21 Liver Function Panel: Alanine Aminotransferase (ALT/SGPT) 72 U/L (16-63) H 06/28/21 13:30 06/28/21 Aspartate Amino Transf (AST/SGOT) 32 U/L (15-37) 06/28/21 13:06/28/21 Coagulation Panel: No Data to Display Cardiac Panel: No Data to Display Arterial Blood Gas: No Data to Display Venous Blood Gas: No Data to Display Pancreas Panel: No Data to Display Thyroid Panel: No Data to Display Infectious Disease: No Data to Display Blood Cultures: No Data to Display Toxicology Panel: No Data to Display Anesthesia Assessment and Plan Anesthesia History Personal History: No History of Anesthesia Complications Family History: No Family History of Anesthesia Complications Exercise Tolerance Exercise Tolerance: Metabolic Equivalents>4 Pertinent Negatives Pertinent Negatives: No Symptoms of GERD, No Major Cardiovascular Symptoms or Complaints, No Major Pulmonary Symptoms or Complaints and No History of CVA/TIA Cardiac & Pulmonary Exam Cardiac Exam: Normal S1/S2 Heart Sounds Pulmonary Exam: Clear Bilateral Breath Sounds Airway Exam Known Difficult Airway: No Mallampati Class: 2 Mouth Opening: Normal (> 3cm) Thyromental Distance: Greater than 3 cm Neck Range of Motion: Full ROM Neck Circumference: Normal Teeth Condition: Normal Dentition ASA Classification ASA Score: ASA 2 Emergency Case?: No NPO Status NPO Status: NPO Clears >2 hours, Solids >8 hours Anesthesia Plan Resuscitation Status: Full Code Anesthesia Technique: MAC Anesthesia Airway Planned: Natural Airway Monitors Used: Standard Monitors
[2021-07-07 07:14] VITALS: BMI 27.1
--- NOTE | 2021-07-07 07:50 | W.ANESPOSTOP ---
Postoperative Evaluation Date, Time and Location Date Performed: 07/07/21 Time Performed: 08:13 Patient Location: Day Surgery Unit Vital Signs Most Recent Imported Vital Signs: Most Recent Vital Signs Temp Pulse Resp BP Pulse Ox 36.4 C L 59 L 16 107/73 98 07/07/21 06:24 07/07/21 06:24 07/07/21 06:24 07/07/21 06:24 07/07/21 06:24 Most Recent Manually Entered Vital Signs: Adult Blood Pressure: 130/71 Heart Rate: 55 Respirations: 16 Oxygen Saturation (%): 98 Temperature (C): 36.5 C Pain Score (0-10 Scale): 0 Pain Score Most Recent Pain Score: Most Recent Pain Score Pain Level 0 07/07/21 06:24 Assessment Mental Status: Awake (Alert & Oriented to Patient Baseline) Airway and Respiratory Function: Patent airway with normal (patient baseline) respiratory exam Cardiovascular Function: Hemodynamically Stable Hydration Status: Adequately Hydrated Nausea & Vomiting: No Nausea or Vomiting Pain: Pt. Denies Any Pain Peripheral Nerve Block: Other (Local by Dr. Olguin)
[2021-07-07] MEDS: Lidocaine 1% Pres-Free 5 ML VIAL (07:57)
[2021-07-07] MEDS: Balanced Salt Soln.-PLUS 500 ML BAG (08:02)
[2021-07-07] MEDS: Lidocaine 2% Jelly 6 ML SYR (08:05)
--- NOTE | 2021-07-07 08:06 | W.PM.DSUDISC ---
Discharge Plan Disposition Patient Disposition: HOME Condition: Good Discharge Details Attending Provider: Kraig Olguin Primary Care Provider: Delmer Koch Home Meds and New Rx's Prescriptions: No Action triamcinolone acetonide 15 GM cream 15 gm Topical DAILY RF: 0 levothyroxine 150 MCG tablet 150 mcg PO DAILY RF: 0 green tea leaf extract 250 MG capsule 250 mg PO DAILY RF: 0 hydrochlorothiazide 25 MG tablet 25 mg PO DAILY RF: 0 vitamin B complex 1 EACH capsule 1 ea PO DAILY RF: 0 magnesium oxide 250 MG tablet 250 mg PO DAILY RF: 0 Fish Oil 1 EACH capsule 1 ea PO DAILY RF: 0 Vitamin D3 Complete 1 EACH tablet 1 ea PO DAILY RF: 0 polyethylene glycol 3350 [Miralax] 17 GM powder in packet 255 gm PO for colonoscopy Qty: 1 RF: 0 bisacodyl [Dulcolax (bisacodyl)] 5 MG tablet,delayed release (DR/EC) 5 mg PO ONCE Qty: 4 RF: 0 aspirin [Aspirin Low Dose] 81 MG tablet,delayed release (DR/EC) 325 mg PO DAILY Qty: 0 RF: 0 Discharge Instructions Stand Alone Forms: Post-op Topical CataractEse (DSU) Discharge Orders Discharge Orders: Discharge Order (Routine); Ordered 07/07/21 Ordered By: Kraig Olguin DS: Diagnosis Discharge Diagnosis (1) Cortical cataract of left eye: Status: Resolved (2) Nuclear sclerotic cataract of left eye: Status: Resolved
[2021-07-07] MEDS: Povidone-Iodine Ophth 30 ML BTL (08:07)
--- NOTE | 2021-07-07 08:07 | W.PM.OP ---
Date of service: 07/07/21 Time of Service: 08:08 Operative Note Operative Note DATE OF PROCEDURE: 07/07/21 PRE-OP DIAGNOSIS: Nuclear/cortical cataract, left eye POST-OP DIAGNOSIS: same PROCEDURE: Cataract extraction using phacoemulsification with intraocular lens implant, left eye SURGEON: Kraig Olguin ANESTHESIA TYPE: Local By Surgeon and MAC Refer to Anesthesia Record PATHOLOGY: none sent COMPLICATIONS: None Patient was transported to: same day Patient's condition: stable Implants: Terence and Terence / [employer] Tecnis [id number] Indications: Progressive decreased vision due to cataract, left eye, with poor red reflex Procedure Description: CATARACT SURGERY OPERATIVE REPORT PREOPERATIVE DIAGNOSIS: 1. Nuclear/cortical cataract, left eye POSTOPERATIVE DIAGNOSIS: Same OPERATION: 1. Cataract extraction using phacoemulsification with posterior chamber intraocular lens implant, left eye. IOL: IOL Steel Molder/Model: Terence & Terence / NGOZI Tecnis [id number] IOL Power: + 21.5 diopters IOL Serial Number: [id number] Optic Diameter: 6.0 mm Haptic/Overall Diameter: 13.0 mm PHACO INFO: [employer] Vision System with OZil and Active Fluidics Cumulative Dispersed Energy (CDE): 10.38 seconds SURGEON: Kraig Olguin MD, LORIN ANESTHESIA: Monitored A [facility] Care (MAC), with local sub-tenon's anesthetic infiltration COMPLICATIONS: None SPECIMENS: None INDICATIONS FOR PROCEDURE: The patient is a 80-year-old gentleman with history of diminished visual acuity in both eyes secondary to the development of significant nuclear and cortical cataracts in both eyes. The option of cataract surgery was offered to the patient and he wished to proceed. 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 He also has an epiretinal membrane affecting the macula in the left eye. He understands her postoperative visual acuity will be limited by the presence of pre-existing maculopathy. PROCEDURE: The correct surgical eye was identified and marked as the left eye and the pupil was dilated in the preoperative area using mydriatics and cycloplegics. The dilated pupil size was 7.0 mm. He elected to proceed without oral sedation. The patient was brought to the operating room where cardiopulmonary monitoring was instituted and surgical time-out was performed, confirming the correct operative eye and IOL power. Topical anesthesia was administered and ophthalmic povidone-iodine 5% was instilled into the conjunctival fornices. Lidocaine gel was applied to the cornea and the ursula-ocular area was prepped with Betadine 10% solution and draped in the usual sterile fashion for intraocular surgery, including an aperture drape. A Tegaderm transparent film dressing was cut in half and used to cover the lashes and lid margins. Care was taken to sequester the lashes and lid margins under the Tegaderm dressing. A lid speculum was placed between the lids of the operative eye and the Max-Sophia operating microscope was maneuvered into position. Roberta scissors were then used to make a conjunctival buttonhole approximately 6mm posterior to the limbus in the inferonasal quadrant. Blunt dissection was carried out to expose bare sclera, and a blunt-tipped sub-tenon?s anesthesia cannula was introduced and passed posteriorly along the globe where non-preserved plain lidocaine was injected into posterior sub-Tenon?s space. A sideport knife was used to make a paracentesis port superiorly/superiortemporally. Intraocular phenylephrine/lidocaine was injected int the anterior chamber.. Air was then injected into the anterior chamber, followed by Vision Blue, which was painted over the anterior capsule and then irrigated out using BSS. The anterior chamber was filled with viscoelastic. A 2.4mm keratome knife was used to create a half-thickness groove at the limbus and then to construct a three-plane near-clear corneal tunnel extending 2.0mm into clear cornea at the 3:00 position. A flap was raised on the anterior capsule and capsulorhexis forceps were used to complete a continuous curvilinear capsulorhexis of 5.5 mm. The anterior capsule was noted to be quite thin. Balanced salt solution was then used to perform cortical cleaving hydrodissection and nuclear hydrodelineation until the lens could be freely rotated within the capsular bag. The lens nucleus was then disassembled and removed within the capsular bag and iris plane using phacoemulsification. Residual cortical material was removed using the 45-degree angled silicone I/A tip with 0.3mm port. The posterior capsule was carefully polished to remove as much residual lens epithelial cells as safely possible. The posterior capsule was extremely thin and diaphanous. Moderate to significant zonular laxity was noted, particularly nasally. The capsular bag was then inflated and the anterior chamber deepened with viscoelastic. The lens implant described above was inserted into the capsular bag using the NGOZI [place] Injector. A Kuglen hook was used to dial the IOL into position. Residual viscoelastic was then removed first from posterior to the IOL, then from the anterior chamber using the I/A handpiece. The lens implant was noted to center nicely within the capsular bag. The incisions were stromally hydrated, and the anterior chamber was reformed using BSS. Then 0.5cc of moxifloxacin 1.0mg/ml were injected into the capsular bag and anterior chamber. The incisions were checked with a Weck spear and found to be secure. At the conclusion of the procedure, Kenalog 20 mg in 0.5 cc was injected into posterior sub-tenon's space using the sub-tenon's injection cannula. Several drops of ophthalmic povidone-iodine 5% were then applied to the eye followed by two drops of Imprimis combination prednisolone/moxifloxacin/nepafenac solution. The drapes were removed and a clear plastic protective eye shield was placed over the eye. The patient was then returned to Same Day Surgery in stable condition.
[2021-07-07] MEDS: Duovisc Viscoelastic System EACH 1 EACH (08:08)
[2021-07-07] MEDS: Triamcinolone 40 MG/ML VIAL (08:09)
[2021-07-07] MEDS: Tetracaine 0.5% 4 ML BTL OS (08:12)
[2021-07-07 08:14] VITALS: BP 130/71; PULSE 55; RESP 16; TEMPC 36.5; O2SAT 98
[2021-07-07 08:16] VITALS: BP 130/71; PULSE 55; RESP 16; TEMP 36.2; O2SAT 98
== END 2021-07-07 08:35 | disposition home or self-care (01) ==
PROVIDERS: PCP Physician Assistant; Visit Provider Ophthalmology
PROC: (CPT 66984; principal; 2021-07-07 07:30)
DX: H25.12 Age-related nuclear cataract, left eye (principal)
CPT/HCPCS: 66984; V2632

== ENCOUNTER 2021-07-21 08:38 | Day surgery (SDC) | payer MEDICARE, SELFPAY ==
[2021-07-21 08:55] VITALS: BP 137/77; PULSE 55; RESP 16; TEMP 36; O2SAT 100
[2021-07-21] MEDS: Tropicam./Phenyleph. (1/2.5%) 5 ML BTL OD ×3 (09:04→09:14)
--- NOTE | 2021-07-21 09:16 | ANES.PREOP_ITS ---
General Info Date of Service Date Performed: 07/21/21 Height: 5 ft 11 in Weight: 88.6 kg Body Mass Index (BMI): 27.2 Surgical Procedure: Operation Date: 07/21/21 11:40 Proposed Procedures Side Surgeon p Cataract Extraction with IOL Implant Right Kraig Olguin MD Meds Allergies and Home Medications Allergies Allergy/AdvReac Type Severity Reaction Status Date / Time No Known Allergies Allergy Unverified 07/17/21 14:57 Home Medication Medication Instructions Recorded Fish Oil 1 ea PO DAILY NS 06/23/16 Vitamin D3 Complete 1 ea PO DAILY NS 06/23/16 bisacodyl [Dulcolax (bisacodyl)] 5 mg PO ONCE #4 tab 06/23/16 green tea leaf extract 250 mg PO DAILY NS 06/23/16 hydrochlorothiazide 25 mg PO DAILY NS 06/23/16 levothyroxine 150 mcg PO DAILY tab-cap NS 06/23/16 magnesium oxide 250 mg PO DAILY NS 06/23/16 polyethylene glycol 3350 [Miralax] 255 gm PO for colonoscopy #1 gm 06/23/16 triamcinolone acetonide 15 gm TOPICAL DAILY script NS 06/23/16 vitamin B complex 1 ea PO DAILY NS 06/23/16 aspirin [Aspirin Low Dose] 325 mg PO DAILY #0 tab-cap NS 06/28/21 Current Visit Medications: Current Medications Generic Name Dose Route Start Last Admin Trade Name Freq PRN Reason Stop Dose Admin Acetaminophen 1,000 mg 07/21/21 06:00 Acetaminophen 500 Mg Tab PO Q4H PRN PRN Miscellaneous Medication 0 ml 07/21/21 06:00 Prednisolone 1%, Moxifloxacin 0.5%, Nepafenac 0.1% 5ml Btl OD DIRECTED [facility] Miscellaneous Medication 0 ml 07/21/21 06:00 07/21/21 09:14 Tropicam./Phenyleph. 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 Appendectomy Lithotripsy (11/29/91) 1991, 1996, 1998 Open Kidney Stone Removal (11/29/05) Stone Extraction and Stent (11/29/92) Stent subsequently removed Tobacco Smoking/Tobacco Use Status: Never Alcohol Alcohol Intake: never Substance Use Substance use: Never Substance use type: does not use Vital Signs and Lab Results Vital Signs Most Recent Vital Signs in EMR: Most Recent Vital Signs Temp Pulse Resp BP Pulse Ox 36.0 C L 55 L 16 137/77 100 07/21/21 08:55 07/21/21 08:55 07/21/21 08:55 07/21/21 08:55 07/21/21 08:55 Lab Results Blood Type / Crossmatch: No Data to Display Complete Blood Count: White Blood Count 5.23 10^3/uL (4.4-10.8) 06/28/21 13:30 06/28/21 Red Blood Count 5.05 10^6/uL (4.36-5.78) 06/28/21 13:30 06/28/21 Hemoglobin 15.3 g/dL (13.5-17.5) 06/28/21 13:30 06/28/21 Hematocrit 43.6 % (40.0-50.0) 06/28/21 13:30 06/28/21 Platelet Count 142 10^3/uL (130-400) 06/28/21 13:30 06/28/21 Complete Metabolic Panel: Sodium Level 144 mmol/L (136-145) 06/28/21 13:30 06/28/21 Potassium Level 4.3 mmol/L (3.5-5.1) 06/28/21 13:30 06/28/21 Chloride Level 106 mmol/L (98-107) 06/28/21 13:30 06/28/21 Carbon Dioxide Level 29.0 mmol/L (21.0-32.0) 06/28/21 13:30 06/28/21 Blood Urea Nitrogen 18 mg/dL (7-18) 06/28/21 13:30 06/28/21 Creatinine 1.1 mg/dL (0.70-1.30) 06/28/21 13:30 06/28/21 Estimated GFR/1.73 m2 >= 60.00 (mL/min/1.73m2) 06/28/21 13:30 06/28/21 Calcium Level 9.1 mg/dL (8.5-10.1) 06/28/21 13:30 06/28/21 Albumin 4.5 g/dL (3.4-5.0) 06/28/21 13:30 06/28/21 Glucose Level 100 mg/dL (74-106) 06/28/21 13:30 06/28/21 C-Reactive Protein 0.11 mg/dL (0.0-0.3) 06/28/21 13:30 06/28/21 Liver Function Panel: Alanine Aminotransferase (ALT/SGPT) 72 U/L (16-63) H 06/28/21 13:30 06/28/21 Aspartate Amino Transf (AST/SGOT) 32 U/L (15-37) 06/28/21 13:30 06/28/21 Coagulation Panel: No Data to Display Cardiac Panel: No Data to Display Arterial Blood Gas: No Data to Display Venous Blood Gas: No Data to Display Pancreas Panel: No Data to Display Thyroid Panel: No Data to Display Infectious Disease: No Data to Display Blood Cultures: No Data to Display Toxicology Panel: No Data to Display Anesthesia Assessment and Plan Anesthesia History Personal History: No History of Anesthesia Complications Family History: No Family History of Anesthesia Complications Exercise Tolerance Exercise Tolerance: Metabolic Equivalents>4 Pertinent Negatives Pertinent Negatives: No Symptoms of GERD, No Major Cardiovascular Symptoms or Complaints and No Major Pulmonary Symptoms or Complaints Cardiac & Pulmonary Exam Cardiac Exam: Normal S1/S2 Heart Sounds Pulmonary Exam: Clear Bilateral Breath Sounds Airway Exam Known Difficult Airway: No Mallampati Class: 2 Mouth Opening: Normal (> 3cm) Thyromental Distance: Greater than 3 cm Neck Range of Motion: Full ROM Neck Circumference: Normal Teeth Condition: Normal Dentition ASA Classification ASA Score: ASA 2 Emergency Case?: No NPO Status NPO Status: NPO Clears >2 hours, Solids >8 hours Anesthesia Plan Resuscitation Status: Full Code Anesthesia Technique: MAC Anesthesia Airway Planned: Natural Airway Monitors Used: Standard Monitors
[2021-07-21 09:29] VITALS: BMI 27.2
[2021-07-21] MEDS: Tetracaine 0.5% 4 ML BTL OD (10:23)
[2021-07-21] MEDS: Povidone-Iodine Ophth 30 ML BTL (10:23)
[2021-07-21] MEDS: Lidocaine 2% Jelly 6 ML SYR (10:23)
[2021-07-21] MEDS: Lidocaine 1% Pres-Free 5 ML VIAL (10:30)
[2021-07-21] MEDS: Balanced Salt Soln.-PLUS 500 ML BAG (10:31)
[2021-07-21] MEDS: Duovisc Viscoelastic System EACH 1 EACH (10:32)
--- NOTE | 2021-07-21 10:52 | W.PM.DSUDISC ---
Discharge Plan Disposition Patient Disposition: HOME Condition: Good Discharge Details Attending Provider: Kraig Olguin Primary Care Provider: Delmer Koch Home Meds and New Rx's Prescriptions: No Action triamcinolone acetonide 15 GM cream 15 gm Topical DAILY RF: 0 levothyroxine 150 MCG tablet 150 mcg PO DAILY RF: 0 green tea leaf extract 250 MG capsule 250 mg PO DAILY RF: 0 hydrochlorothiazide 25 MG tablet 25 mg PO DAILY RF: 0 vitamin B complex 1 EACH capsule 1 ea PO DAILY RF: 0 magnesium oxide 250 MG tablet 250 mg PO DAILY RF: 0 Fish Oil 1 EACH capsule 1 ea PO DAILY RF: 0 Vitamin D3 Complete 1 EACH tablet 1 ea PO DAILY RF: 0 polyethylene glycol 3350 [Miralax] 17 GM powder in packet 255 gm PO for colonoscopy Qty: 1 RF: 0 bisacodyl [Dulcolax (bisacodyl)] 5 MG tablet,delayed release (DR/EC) 5 mg PO ONCE Qty: 4 RF: 0 aspirin [Aspirin Low Dose] 81 MG tablet,delayed release (DR/EC) 325 mg PO DAILY Qty: 0 RF: 0 Discharge Instructions Stand Alone Forms: Post-op Topical CataractEse (DSU) Discharge Orders Discharge Orders: Discharge Order (Routine); Ordered 07/21/21 Ordered By: Kraig Olguin DS: Diagnosis Discharge Diagnosis (1) Cortical cataract of right eye: Status: Resolved (2) Nuclear sclerotic cataract of right eye: Status: Resolved
[2021-07-21 10:53] VITALS: BP 126/76; PULSE 55; RESP 16; TEMP 36.5; O2SAT 98
--- NOTE | 2021-07-21 10:55 | W.PM.OP ---
Date of service: 07/21/21 Time of Service: 10:55 Operative Note Operative Note DATE OF PROCEDURE: 07/21/21 PRE-OP DIAGNOSIS: Nuclear/cortical cataract, right eye POST-OP DIAGNOSIS: same PROCEDURE: Cataract extraction using phacoemulsification with intraocular lens implant, right eye SURGEON: Kraig Olguin ANESTHESIA TYPE: Local By Surgeon and MAC Refer to Anesthesia Record ESTIMATED BLOOD LOSS: 0 PATHOLOGY: none sent COMPLICATIONS: None Patient was transported to: same day Patient's condition: stable Implants: Terence & Terence/NGOZI Tecnis [id number] Indications: Progressive visual loss due to cataract, right eye Procedure Description: CATARACT SURGERY OPERATIVE REPORT PREOPERATIVE DIAGNOSIS: 1. Nuclear/cortical cataract, right eye POSTOPERATIVE DIAGNOSIS: Same OPERATION: 1. Cataract extraction using phacoemulsification with posterior chamber intraocular lens implant, right eye. IOL: IOL Community Engagement Representative/Model: Terence & Terence / NGOZI Tecnis [id number] IOL Power: + 21.5 diopters IOL Serial Number: [id number] Optic Diameter: 6.0mm Haptic/Overall Diameter: 13.0mm PHACO INFO: [employer] Vision System with OZil and Active Fluidics Cumulative Dispersed Energy (CDE): 8.79 seconds SURGEON: Kraig Olguin MD, LORIN ANESTHESIA: Monitored Anesthesia Care (MAC), with local sub-tenon's anesthetic infiltration COMPLICATIONS: None SPECIMENS: None INDICATIONS FOR PROCEDURE: Patient is a 80-year-old gentleman with history of diminished visual acuity in both eyes secondary to the development of bilateral nuclear and cortical cataract. He is significantly symptomatic that he desires cataract surgery and attempt to improve and maximize his vision. He has already undergone cataract surgery in the left eye and is doing well postoperatively. He now presents for cataract surgery in the right eye. 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 Cataract surgery is undertaken in attempt to maximize his remaining vision. PROCEDURE: The correct surgical eye was identified and marked as the right eye and the pupil was dilated in the preoperative area using mydriatics and cycloplegics. The dilated pupil size was 6.5 mm. Oral sedation was administered in the form of an Imprimis MKO Melt (midazolam 3mg/ketamine 25mg/ondansetron 2mg). The patient was brought to the operating room where cardiopulmonary monitoring was instituted and surgical time-out was performed, confirming the correct operative eye and IOL power. Topical anesthesia was administered and ophthalmic povidone-iodine 5% was instilled into the conjunctival fornices. Lidocaine gel was applied to the cornea and the ursula-ocular area was prepped with Betadine 10% solution and draped in the usual sterile fashion for intraocular surgery, including an aperture drape. A Tegaderm transparent film dressing was cut in half and used to cover the lashes and lid margins. Care was taken to sequester the lashes and lid margins under the Tegaderm dressing. A lid speculum was placed between the lids of the operative eye and the Max-Sophia operating microscope was maneuvered into position. Roberta scissors were then used to make a conjunctival buttonhole approximately 6mm posterior to the limbus in the inferonasal quadrant. Blunt dissection was carried out to expose bare sclera, and a blunt-tipped sub-tenon?s anesthesia cannula was introduced and passed posteriorly along the globe where non-preserved plain lidocaine was injected into posterior sub-Tenon?s space. A sideport knife was used to make a paracentesis port inferotemporally. Intraocular phenylephrine/lidocaine was injected into the anterior chamber. The anterior chamber was filled with viscoelastic. A 2.4mm keratome knife was used to create a half-thickness groove at the limbus and then to construct a three-plane near-clear corneal tunnel extending 2.0mm into clear cornea superiortemporally. A flap was raised on the anterior capsule and capsulorhexis forceps were used to complete a continuous curvilinear capsulorhexis of 5.5 mm. The capsule was noted to be quite thin with loose zonules. Balanced salt solution was then used to perform cortical cleaving hydrodissection and nuclear hydrodelineation until the lens could be freely rotated within the capsular bag. The lens nucleus was then disassembled and removed within the capsular bag and iris plane using phacoemulsification. Residual cortical material was removed using the I/A handpiece. Some posterior pressure was noted with convexity of the posterior capsule. The posterior capsule was carefully polished to remove as much residual lens epithelial cells as safely possible. The capsular bag was then inflated and the anterior chamber deepened with viscoelastic. The lens implant described above was inserted into the capsular bag using the NGOZI [place] Injector. A Kuglen hook was used to dial the IOL into position. Residual viscoelastic was then removed first from posterior to the IOL, then from the anterior chamber using the I/A handpiece. The lens implant was noted to center nicely within the capsular bag. The incisions were stromally hydrated, and the anterior chamber was reformed using BSS. Then 0.5cc of moxifloxacin 1.0mg/ml were injected into the capsular bag and anterior chamber. The incisions were checked with a Weck spear and found to be secure. Several drops of ophthalmic povidone-iodine 5% were then applied to the eye followed by two drops of Imprimis combination prednisolone/moxifloxacin/nepafenac solution. The drapes were removed and a clear plastic protective eye shield was placed over the eye. The patient was then returned to Same Day Surgery in stable condition.
--- NOTE | 2021-07-21 11:06 | W.ANESPOSTOP ---
Postoperative Evaluation Date, Time and Location Date Performed: 07/21/21 Time Performed: 11:02 Patient Location: Day Surgery Unit Vital Signs Most Recent Imported Vital Signs: Most Recent Vital Signs Temp Pulse Resp BP Pulse Ox 36.5 C 55 L 16 126/76 98 07/21/21 10:53 07/21/21 10:53 07/21/21 10:53 07/21/21 10:53 07/21/21 10:53 Pain Score Most Recent Pain Score: Most Recent Pain Score Pain Level 0 07/21/21 10:53 Assessment Mental Status: Awake (Alert & Oriented to Patient Baseline) Airway and Respiratory Function: Patent airway with normal (patient baseline) respiratory exam Cardiovascular Function: Hemodynamically Stable Hydration Status: Adequately Hydrated Nausea & Vomiting: No Nausea or Vomiting Pain: Pt. Denies Any Pain Peripheral Nerve Block: Patient did not receive a nerve block
[2021-07-21 11:30] VITALS: BP 122/61; PULSE 59; RESP 16; TEMP 36.5; O2SAT 96
== END 2021-07-21 11:30 | disposition home or self-care (01) ==
PROVIDERS: PCP Physician Assistant; Visit Provider Ophthalmology
PROC: (CPT 66984; principal; 2021-07-21 11:30)
DX: H25.11 Age-related nuclear cataract, right eye (principal)
CPT/HCPCS: 66984; V2632

== ENCOUNTER 2021-08-07 02:50 | Outpatient (CLI) | payer MEDICARE, SELFPAY ==
[2021-08-07 08:18] LABS: Abs Immature Grans 0.01 10^3/uL (0.0-0.06); Absolute Basophil Count 0.04 10^3/uL (0.0-0.2); Absolute Eosinophil Count 0.21 10^3/uL (0.0-0.7); Absolute Lymphocyte Count 1.13 10^3/uL (1.2-3.4); Absolute Monocyte Count 0.39 10^3/uL (0.1-0.8); Absolute Neutrophil Count 2.63 10^3/uL (1.2-6.7); Basophils % 0.9; Eosinophils % 4.8; HCT 40.3 % (40.0-50.0); HGB 14.1 g/dL (13.5-17.5); Immature Grans % 0.2; Lymphocytes % 25.6; MCH 30.3 pg (27.0-33.0); MCV 86.7 fL (80-95); MPV 9.7 fL (8.0-11.0); Monocytes % 8.8; Neutrophils % 59.7; Nucleated RBC 0 %; Platelet Count 122 10^3/uL (130-400); RBC 4.65 10^6/uL (4.36-5.78); RDW 12.8 % (11.8-14.1); RDW-SD 40.1 fL; WBC 4.41 10^3/uL (4.4-10.8)
[2021-08-07 08:41] LABS: ALT 65 U/L (16-63); AST 29 U/L (15-37); Albumin 4.1 g/dL (3.4-5.0); Alkaline Phosphatase 80 U/L (46-116); Anion Gap 7.9 mmol/L (3-11); BUN 18 mg/dL (7-18); Bilirubin, Total 0.6 mg/dL (0.2-1.0); CO2 26.1 mmol/L (21.0-32.0); CREATININE 1.1 mg/dL (0.70-1.30); Calcium 8.8 mg/dL (8.5-10.1); Chloride 108 mmol/L (98-107); Glucose 152 mg/dL (74-106); LDH 175 U/L (85-227); Sodium 142 mmol/L (136-145); Total Protein 6.6 g/dL (6.4-8.2)
== END 2021-08-07 02:51 | disposition home or self-care (01) ==
LOC: LBO 02:50
PROVIDERS: PCP Physician Assistant; Visit Provider Internal Medicine Hematology & Oncology
DX: C91.10 Chronic lymphocytic leukemia of B-cell type not having achieved remission (principal)
CPT/HCPCS: 36415; 80053; 83615; 85025

== ENCOUNTER 2022-04-02 03:59 | Outpatient (CLI) | payer MEDICARE, SELFPAY ==
[2022-04-02 08:30] LABS: Abs Immature Grans 0.01 10^3/uL (0.0-0.06); Absolute Basophil Count 0.03 10^3/uL (0.0-0.2); Absolute Eosinophil Count 0.16 10^3/uL (0.0-0.7); Absolute Lymphocyte Count 1.54 10^3/uL (1.2-3.4); Absolute Monocyte Count 0.43 10^3/uL (0.1-0.8); Absolute Neutrophil Count 2.73 10^3/uL (1.2-6.7); Basophils % 0.6; Eosinophils % 3.3; HGB 14.9 g/dL (13.5-17.5); Immature Grans % 0.2; Lymphocytes % 31.4; MCHC 35.5 % (32.0-36.0); MCV 85 fL (80-95); MPV 9.3 fL (8.0-11.0); Monocytes % 8.8; Neutrophils % 55.7; Platelet Count 125 10^3/uL (130-400); RBC 4.96 10^6/uL (4.36-5.78); RDW 12.6 % (11.8-14.1); RDW-SD 38.2 fL
[2022-04-02 08:47] LABS: ALT 54 U/L (16-63); AST 26 U/L (15-37); Albumin 4.2 g/dL (3.4-5.0); Alkaline Phosphatase 93 U/L (46-116); Anion Gap 5.9 mmol/L (3-11); BUN 18 mg/dL (7-18); Bilirubin, Total 0.9 mg/dL (0.2-1.0); CO2 30.1 mmol/L (21.0-32.0); Calcium 8.9 mg/dL (8.5-10.1); Chloride 104 mmol/L (98-107); Glucose 116 mg/dL (74-106); Potassium 3.8 mmol/L (3.5-5.1); Sodium 140 mmol/L (136-145); Total Protein 6.9 g/dL (6.4-8.2)
== END 2022-04-02 04:00 | disposition home or self-care (01) ==
LOC: LBO 04:02
PROVIDERS: PCP Physician Assistant; Visit Provider Internal Medicine Hematology & Oncology
DX: C91.10 Chronic lymphocytic leukemia of B-cell type not having achieved remission (principal)
CPT/HCPCS: 36415; 80053; 85025

== ENCOUNTER 2022-09-24 07:15 | Outpatient (CLI) | payer MEDICARE, SELFPAY ==
[2022-09-24 07:27] LABS: Abs Immature Grans 0.01 10^3/uL (0.0-0.06); Absolute Basophil Count 0.04 10^3/uL (0.0-0.2); Absolute Eosinophil Count 0.22 10^3/uL (0.0-0.7); Absolute Lymphocyte Count 1.58 10^3/uL (1.2-3.4); Absolute Monocyte Count 0.44 10^3/uL (0.1-0.8); Basophils % 0.8; Eosinophils % 4.2; HCT 40.4 % (40.0-50.0); HGB 14.3 g/dL (13.5-17.5); Immature Grans % 0.2; Lymphocytes % 29.9; MCH 31.1 pg (27.0-33.0); MCHC 35.4 % (32.0-36.0); MCV 88 fL (80-95); MPV 9.5 fL (8.0-11.0); Monocytes % 8.3; Neutrophils % 56.6; Platelet Count 127 10^3/uL (130-400); RDW 12.6 % (11.8-14.1); RDW-SD 40.4 fL; WBC 5.29 10^3/uL (4.4-10.8)
[2022-09-24 07:45] LABS: ALT 47 U/L (16-63); AST 26 U/L (15-37); Albumin 4.1 g/dL (3.4-5.0); Alkaline Phosphatase 76 U/L (46-116); Anion Gap 6.3 mmol/L (3-11); BUN 19 mg/dL (7-18); Bilirubin, Total 0.6 mg/dL (0.2-1.0); CO2 29.7 mmol/L (21.0-32.0); CREATININE 1.5 mg/dL (0.70-1.30); Calcium 9.3 mg/dL (8.5-10.1); Chloride 104 mmol/L (98-107); Estimated GFR 46.77 (mL/min/1.73m2); Glucose 178 mg/dL (74-106); LDH 165 U/L (85-227); Potassium 4.2 mmol/L (3.5-5.1); Sodium 140 mmol/L (136-145); Total Protein 6.8 g/dL (6.4-8.2)
== END 2022-09-24 07:16 | disposition home or self-care (01) ==
LOC: LBO 07:16
PROVIDERS: PCP Physician Assistant; Visit Provider Internal Medicine Hematology & Oncology
DX: C91.10 Chronic lymphocytic leukemia of B-cell type not having achieved remission (principal)
CPT/HCPCS: 36415; 80053; 83615; 85025

== ENCOUNTER 2023-03-25 01:59 | Outpatient (CLI) | payer MEDICARE, SELFPAY ==
[2023-03-25 09:31] LABS: Abs Immature Grans 0.01 10^3/uL (0.0-0.06); Absolute Basophil Count 0.05 10^3/uL (0.0-0.2); Absolute Lymphocyte Count 2.11 10^3/uL (1.2-3.4); Absolute Monocyte Count 0.55 10^3/uL (0.1-0.8); Basophils % 0.8; Eosinophils % 3.4; HCT 41.3 % (40.0-50.0); HGB 14.7 g/dL (13.5-17.5); Immature Grans % 0.2; Lymphocytes % 35.6; MCH 30.1 pg (27.0-33.0); MCHC 35.6 % (32.0-36.0); MCV 85 fL (80-95); MPV 9.9 fL (8.0-11.0); Monocytes % 9.3; Neutrophils % 50.7; Platelet Count 137 10^3/uL (130-400); RBC 4.89 10^6/uL (4.36-5.78); RDW 12.8 % (11.8-14.1); WBC 5.92 10^3/uL (4.4-10.8)
[2023-03-25 09:44] LABS: ALT 50 U/L (16-63); AST 27 U/L (15-37); Albumin 4.1 g/dL (3.4-5.0); Alkaline Phosphatase 82 U/L (46-116); Anion Gap 7.5 mmol/L (3-11); BUN 17 mg/dL (7-18); Bilirubin, Total 0.9 mg/dL (0.2-1.0); CO2 27.5 mmol/L (21.0-32.0); CREATININE 1.2 mg/dL (0.70-1.30); Calcium 9.1 mg/dL (8.5-10.1); Chloride 106 mmol/L (98-107); Estimated GFR 61.13 (mL/min/1.73m2); Glucose 102 mg/dL (74-106); LDH 197 U/L (85-227); Potassium 3.9 mmol/L (3.5-5.1); Sodium 141 mmol/L (136-145); Total Protein 6.8 g/dL (6.4-8.2)
== END 2023-03-25 02:00 | disposition home or self-care (01) ==
LOC: LBO 01:59
PROVIDERS: PCP Physician Assistant; Visit Provider Internal Medicine Hematology & Oncology
DX: C91.10 Chronic lymphocytic leukemia of B-cell type not having achieved remission (principal)
CPT/HCPCS: 36415; 80053; 83615; 85025

== ENCOUNTER 2023-09-23 04:07 | Outpatient (CLI) | payer MEDICARE, SELFPAY ==
[2023-09-23 13:30] LABS: Abs Immature Grans 0.03 10^3/uL (0.0-0.06); Absolute Basophil Count 0.06 10^3/uL (0.0-0.2); Absolute Eosinophil Count 0.21 10^3/uL (0.0-0.7); Absolute Lymphocyte Count 2.64 10^3/uL (1.2-3.4); Absolute Monocyte Count 0.46 10^3/uL (0.1-0.8); Absolute Neutrophil Count 3.21 10^3/uL (1.2-6.7); Basophils % 0.9; Eosinophils % 3.2; HCT 39.5 % (40.0-50.0); HGB 14.3 g/dL (13.5-17.5); Immature Grans % 0.5; Lymphocytes % 39.9; MCH 30.3 pg (27.0-33.0); MCHC 36.2 % (32.0-36.0); MCV 84 fL (80-95); MPV 9.7 fL (8.0-11.0); Neutrophils % 48.5; Platelet Count 131 10^3/uL (130-400); RBC 4.72 10^6/uL (4.36-5.78); RDW 12.6 % (11.8-14.1); RDW-SD 38.6 fL; WBC 6.61 10^3/uL (4.4-10.8)
[2023-09-23 13:40] LABS: ALT 49 U/L (16-63); AST 28 U/L (15-37); Albumin 4.3 g/dL (3.4-5.0); Alkaline Phosphatase 80 U/L (46-116); Anion Gap 9.5 mmol/L (3-11); BUN 19 mg/dL (7-18); Bilirubin, Total 0.8 mg/dL (0.2-1.0); CO2 26.5 mmol/L (21.0-32.0); CREATININE 1.5 mg/dL (0.70-1.30); Calcium 9.3 mg/dL (8.5-10.1); Chloride 104 mmol/L (98-107); Estimated GFR 46.48 (mL/min/1.73m2); Glucose 119 mg/dL (74-106); Potassium 3.7 mmol/L (3.5-5.1); Sodium 140 mmol/L (136-145); Total Protein 6.8 g/dL (6.4-8.2)
== END 2023-09-23 04:08 | disposition home or self-care (01) ==
LOC: LBO 04:07
PROVIDERS: PCP Physician Assistant; Visit Provider Internal Medicine Hematology & Oncology
DX: C91.10 Chronic lymphocytic leukemia of B-cell type not having achieved remission (principal)
CPT/HCPCS: 36415; 80053; 85025

== ENCOUNTER 2024-03-16 05:01 | Outpatient (CLI) | payer MEDICARE, SELFPAY ==
[2024-03-16 08:54] LABS: Abs Immature Grans 0.02 10^3/uL (0.0-0.06); Absolute Basophil Count 0.06 10^3/uL (0.0-0.2); Absolute Eosinophil Count 0.23 10^3/uL (0.0-0.7); Absolute Lymphocyte Count 3.09 10^3/uL (1.2-3.4); Absolute Monocyte Count 0.55 10^3/uL (0.1-0.8); Absolute Neutrophil Count 2.66 10^3/uL (1.2-6.7); Basophils % 0.9; Eosinophils % 3.5; HCT 40.9 % (40.0-50.0); HGB 14.3 g/dL (13.5-17.5); Immature Grans % 0.3; Lymphocytes % 46.7; MCH 30.1 pg (27.0-33.0); MCV 86 fL (80-95); MPV 9.7 fL (8.0-11.0); Monocytes % 8.3; Neutrophils % 40.3; RBC 4.75 10^6/uL (4.36-5.78); RDW 12.9 % (11.8-14.1); RDW-SD 40.3 fL; WBC 6.61 10^3/uL (4.4-10.8)
[2024-03-16 08:59] LABS: Platelet Count 130 10^3/uL (130-400)
[2024-03-16 09:12] LABS: ALT 41 U/L (16-63); AST 26 U/L (15-37); Alkaline Phosphatase 84 U/L (46-116); Anion Gap 9.5 mmol/L (3-11); BUN 23 mg/dL (7-18); Bilirubin, Total 0.9 mg/dL (0.2-1.0); CO2 29.5 mmol/L (21.0-32.0); CREATININE 1.2 mg/dL (0.70-1.30); Chloride 105 mmol/L (98-107); Estimated GFR 60.75 (mL/min/1.73m2); Glucose 129 mg/dL (74-106); LDH 172 U/L (85-227); Potassium 3.7 mmol/L (3.5-5.1); Sodium 144 mmol/L (136-145); Total Protein 6.6 g/dL (6.4-8.2)
== END 2024-03-16 05:02 | disposition home or self-care (01) ==
LOC: LBO 05:01
PROVIDERS: PCP Physician Assistant; Visit Provider Internal Medicine Hematology & Oncology
DX: C91.10 Chronic lymphocytic leukemia of B-cell type not having achieved remission (principal)
CPT/HCPCS: 36415; 80053; 83615; 85025

== ENCOUNTER 2025-03-21 03:29 | Outpatient (CLI) | payer MEDICARE, SELFPAY ==
[2025-03-21 07:17] LABS: Abs Immature Grans 0.02 10^3/uL (0.0-0.06); HCT 40.7 % (40.0-50.0); MCH 30.6 pg (27.0-33.0); MCHC 34.4 % (32.0-36.0); MCV 89 fL (80-95); MPV 9.7 fL (8.0-11.0); Platelet Count 113 10^3/uL (130-400); RBC 4.58 10^6/uL (4.36-5.78); RDW 12.9 % (11.8-14.1); RDW-SD 41.7 fL; WBC 8.62 10^3/uL (4.4-10.8)
[2025-03-21 07:33] LABS: ALT 33 U/L (16-63); AST 27 U/L (15-37); Absolute Basophil Count 0.09 10^3/uL (0.0-0.2); Absolute Eosinophil Count 0.09 10^3/uL (0.0-0.7); Absolute Lymphocyte Count 5.52 10^3/uL (1.2-3.4); Absolute Monocyte Count 0.34 10^3/uL (0.1-0.8); Absolute Neutrophil Count 2.59 10^3/uL (1.2-6.7); Albumin 4.1 g/dL (3.4-5.0); Alkaline Phosphatase 79 U/L (46-116); Anion Gap 9.8 mmol/L (3-11); Atypical Lymphocytes % 6 %; BUN 21 mg/dL (7-18); Bands % 1 %; Bilirubin, Total 0.8 mg/dL (0.2-1.0); CO2 26.2 mmol/L (21.0-32.0); CREATININE 1.3 mg/dL (0.70-1.30); Chloride 108 mmol/L (98-107); Estimated GFR 54.85 (mL/min/1.73m2); Glucose 122 mg/dL (74-106); Sodium 144 mmol/L (136-145); Total Protein 6.5 g/dL (6.4-8.2)
[2025-03-21 07:34] LABS: Diff Comment Manual Differential; RBC Morphology Normal
== END 2025-03-21 03:30 | disposition home or self-care (01) ==
PROVIDERS: PCP Physician Assistant; Visit Provider Internal Medicine Hematology & Oncology
DX: C91.10 Chronic lymphocytic leukemia of B-cell type not having achieved remission (principal)
CPT/HCPCS: 36415; 80053; 85025

== ENCOUNTER 2025-09-19 01:36 | Outpatient (CLI) | payer MEDICARE, SELFPAY ==
[2025-09-19 11:53] LABS: HCT 41.0 % (40.0-50.0); HGB 14.5 g/dL (13.5-17.5); MCH 30.4 pg (27.0-33.0); MCHC 35.4 % (32.0-36.0); MCV 86 fL (80-95); MPV 9.6 fL (8.0-11.0); Platelet Count 118 10^3/uL (130-400); RBC 4.77 10^6/uL (4.36-5.78); RDW 12.5 % (11.8-14.1); RDW-SD 39.0 fL; WBC 11.74 10^3/uL (4.4-10.8)
[2025-09-19 12:05] LABS: Abs Immature Grans 0.00 10^3/uL (0.0-0.06); Immature Grans % 0.0 %; RBC Morphology Normal
[2025-09-19 12:10] LABS: ALT 39 U/L (16-63); AST 25 U/L (15-37); Albumin 4.1 g/dL (3.4-5.0); Alkaline Phosphatase 92 U/L (46-116); Anion Gap 9.4 mmol/L (3-11); BUN 23 mg/dL (7-18); Bilirubin, Total 0.8 mg/dL (0.2-1.0); CO2 30.6 mmol/L (21.0-32.0); Calcium 9.0 mg/dL (8.5-10.1); Chloride 102 mmol/L (98-107); Estimated GFR 60.38 (mL/min/1.73m2); Glucose 148 mg/dL (74-106); Potassium 3.9 mmol/L (3.5-5.1); Sodium 142 mmol/L (136-145); Total Protein 6.9 g/dL (6.4-8.2)
== END 2025-09-19 01:37 | disposition home or self-care (01) ==
LOC: LBO 01:36
PROVIDERS: PCP Physician Assistant; Visit Provider Internal Medicine Hematology & Oncology
DX: C91.10 Chronic lymphocytic leukemia of B-cell type not having achieved remission (principal)
CPT/HCPCS: 36415; 80053; 85025